=== PATIENT | male | born 1970 ===

== ENCOUNTER 2021-08-09 06:41 | Outpatient (REF) | payer OTHER, SELFPAY ==
[2021-08-09 07:32] LABS: Hematocrit 53.1 % (42.0-52.0); Hemoglobin 17.7 g/dl (14.0-18.0); Mean Corpuscular HGB Conc 33.3 g/dl (31.0-36.0); Mean Platelet Volume 10.4 fL (9.4-12.4); Platelet Count 205 X10*3/uL (160-400)
[2021-08-09 07:43] LABS: Estimated Average Glucose 123 mg/dL; Hemoglobin A1c % 5.9 %
[2021-08-09 08:03] LABS: Alanine Aminotransferase 29 U/L (0-40); Albumin Level 4.5 g/dL (3.5-5.0); Alkaline Phosphatase 83 U/L (39-117); Aspartate Amino Transferase 22 U/L (5-37); Bilirubin Direct 0.3 mg/dL (0.0-0.5); Bilirubin Total 1.2 mg/dL (0.0-1.0); Cholesterol 256 mg/dL; HDL Cholesterol 33 mg/dL; Total Protein 7.6 g/dL (6.5-8.0); Triglycerides 461 mg/dL
[2021-08-09 08:40] LABS: Appearance Urine CLEAR; Color Urine YELLOW; Glucose Urine UA 500 MG/DL (NEG); Leukocyte Esterase Urine NEG (NEG); Nitrite Urine NEG (NEG); Urine Blood NEG (NEG); Urine Ketones NEG (NEG); Urine Protein TRACE MG/DL (NEG-TRACE)
== END 2021-08-09 06:42 | disposition home or self-care (01) ==
LOC: HO.LAB 06:41
PROVIDERS: PCP Internal Medicine; Visit Provider Internal Medicine
DX: E11.9 Type 2 diabetes mellitus without complications (principal)
CPT/HCPCS: 36415; 80061; 80076; 81003; 83036; 85027

== ENCOUNTER 2021-12-28 06:55 | Outpatient (REF) | payer OTHER, SELFPAY ==
[2021-12-28 07:25] LABS: Hematocrit 50.6 % (42.0-52.0); Hemoglobin 17.3 g/dl (14.0-18.0); Mean Corpuscular HGB Conc 34.2 g/dl (31.0-36.0); Mean Corpuscular Volume 87.7 fL (80.0-98.0); Mean Platelet Volume 10.2 fL (9.4-12.4); Platelet Count 217 X10*3/uL (160-400); Red Blood Count 5.77 X10*6/uL (4.60-5.80); White Blood Count 7.3 X10*3/uL (4.8-10.8)
[2021-12-28 07:31] LABS: Estimated Average Glucose 126 mg/dL
[2021-12-28 07:52] LABS: Alanine Aminotransferase 24 U/L (0-40); Albumin Level 4.5 g/dL (3.5-5.0); Alkaline Phosphatase 95 U/L (39-117); Anion Gap 12 (12-20); Aspartate Amino Transferase 22 U/L (5-37); Bilirubin Direct 0.3 mg/dL (0.0-0.5); Bilirubin Total 1.3 mg/dL (0.0-1.0); Blood Urea Nitrogen 21 mg/dL (9-16); Calcium 9.5 mg/dL (8.4-10.2); Carbon Dioxide 26 mmol/L (22-29); Chloride 106 mmol/L (96-108); Cholesterol 210 mg/dL; Estimated Glomerular Filt Rate > 60; Glucose Random 101 mg/dL (60-115); HDL Cholesterol 34 mg/dL; LDL Cholesterol Calculated 109 mg/dl; Potassium 4.5 mmol/L (3.3-5.1); Sodium 139 mmol/L (135-145); Total Protein 7.6 g/dL (6.5-8.0); Triglycerides 336 mg/dL
[2021-12-28 09:56] LABS: Microalbum/Creatinine Ratio Ur 31.9 ug/mg cr
== END 2021-12-28 06:56 | disposition home or self-care (01) ==
LOC: HO.LAB 06:55
PROVIDERS: PCP Internal Medicine; Visit Provider Internal Medicine
DX: E11.9 Type 2 diabetes mellitus without complications (principal); I10 Essential (primary) hypertension
CPT/HCPCS: 36415; 80048; 80061; 80076; 82043; 83036; 85027

== ENCOUNTER 2022-07-09 06:52 | Outpatient (REF) | payer OTHER, SELFPAY ==
[2022-07-09 08:01] LABS: Hematocrit 53.1 % (42.0-52.0); Hemoglobin 18.5 g/dl (14.0-18.0); Mean Corpuscular HGB Conc 34.8 g/dl (31.0-36.0); Mean Corpuscular Hemoglobin 30.4 pg (27.0-33.0); Mean Corpuscular Volume 87.2 fL (80.0-98.0); Mean Platelet Volume 10.8 fL (9.4-12.4); Platelet Count 213 X10*3/uL (160-400); Red Blood Count 6.09 X10*6/uL (4.60-5.80); White Blood Count 6.9 X10*3/uL (4.8-10.8)
[2022-07-09 10:46] LABS: Alanine Aminotransferase 35 U/L (0-40); Albumin Level 4.5 g/dL (3.5-5.0); Alkaline Phosphatase 105 U/L (39-117); Anion Gap 18 (12-20); Aspartate Amino Transferase 21 U/L (5-37); Bilirubin Direct < 0.2 mg/dL (0.0-0.5); Bilirubin Total 0.7 mg/dL (0.0-1.0); Blood Urea Nitrogen 19 mg/dL (9-16); Carbon Dioxide 22 mmol/L (22-29); Chloride 104 mmol/L (96-108); Cholesterol 270 mg/dL; Estimated Glomerular Filt Rate > 60; Glucose Random 140 mg/dL (60-115); HDL Cholesterol 30 mg/dL; Potassium 4.5 mmol/L (3.3-5.1); Sodium 139 mmol/L (135-145); Total Protein 7.8 g/dL (6.5-8.0); Triglycerides 1003 mg/dL
== END 2022-07-09 06:53 | disposition home or self-care (01) ==
LOC: HO.LAB 06:52
PROVIDERS: PCP Internal Medicine; Visit Provider Internal Medicine
DX: Z00.00 Encounter for general adult medical examination without abnormal findings (principal); E11.9 Type 2 diabetes mellitus without complications; I10 Essential (primary) hypertension
CPT/HCPCS: 36415; 80048; 80061; 80076; 84443; 85027

== ENCOUNTER 2022-07-28 08:23 | Emergency (ER) | payer OTHER, SELFPAY ==
--- NOTE | ~2022-07-28 | XR_ITS ---
EXAMINATION: XR CHEST CLINICAL INFORMATION: Weakness COMPARISON: Chest x-ray December 16, 2018 TECHNIQUE: Frontal view of the chest was obtained. FINDINGS: Cardiac silhouette is normal in size. The lungs are well aerated. There is no lobar consolidation. No pleural effusion or pneumothorax. XR/XR chest 1V IMPRESSION: No acute pulmonary pathology.
[2022-07-28 08:25] VITALS: BP 152/96; PULSE 78; RESP 18; TEMP 36.5; O2SAT 99; BMI 28.5
--- NOTE | 2022-07-28 08:33 | ED.URI ---
HPI - URI/Sore Throat General Chief Complaint: Upper Respiratory Symptoms Stated Complaint: covid + not feeling well Time Seen by Provider: 07/28/22 08:32 Source: patient Mode of arrival: ambulatory Limitations: no limitations History of Present Illness HPI Narrative: 52-year-old male past medical history of hypertension and diabetes presents to the emergency department today with complaints of malaise, nausea with coughing, sore throat, fever and chills since Saturday of this week and diagnosed with COVID-19 on 07/26/2022. Last fever yesterday, managed with Ibuprofen Today, his major complaint is that he states his 'breathing is not normal' with shortness of breath with exertion. He denies any chest pain, headache, vision changes, change in bowel patterns or consistency. MD elicited complaint: fever, cough and sore throat Onset (ago): day(s) (3) Consistency: constant Severity: mild Description of mucous: clear Able to tolerate fluids by mouth: Yes Exacerbating factors: exertion Relieving factors: NSAID, OTC cold medicine and rest Treatments prior to arrival: ibuprofen Related Data Previous Rx's Medication Instructions Recorded lancets 28 gauge (Good PhotoStyle #100 ea 08/03/21 Lancets) telmisartan 40 1 tab PO DAILY #90 tabs 08/03/21 mg-hydrochlorothiazide 12.5 mg tablet blood sugar diagnostic (Good PhotoStyle #100 ea 01/29/22 Lite Strips) dapagliflozin 10 mg-metformin ER 1 tab PO DAILY #90 ea 01/29/22 1,000 mg tablet,extended release 24hr (Xigduo XR) Allergies Allergy/AdvReac Type Severity Reaction Status Date / Time No Known Allergies Allergy Verified 07/05/22 13:26 [No Known Allergies*] Review of Systems Review of Systems: In addition to documented HPI above, the additional ROS was obtained: Constitutional: No Weight loss, no headache ENT/Mouth: No Ear Pain, No Nasal Congestion, No Sinus Pain, No Hoarseness, No Rhinorrhea, No Swallowing Difficulty Cardiovascular: No Chest Pain, No SOB at rest Respiratory: No Sputum, No Wheezing Gastrointestinal: No Vomiting, No Diarrhea, No Constipation, No Abdominal pain Genitourinary: No Dysuria, No Urinary Frequency, No Hematuria, No Urinary Incontinence/retention, No Urgency, No Flank Pain Musculoskeletal: No joint pain, No Myalgias, No Joint Swelling Skin: No Skin Lesions, No rash Neuro: No Weakness, No Numbness, No Paresthesias Yes all other systems are reviewed and are negative PMFSH Past Medical History Attestation statement: The following information was validated with the patient. Source: old records reviewed Medical History Diabetes mellitus Essential hypertension Surgical History No history of previous surgery Family History Family History Mother No problems noted. Father No problems noted. Social History Social History Housing: Apartment Alcohol intake: never Patient Tobacco Use Status: Former Tobacco user (20 years ago) Quit Date: 20 years ago e-Cigarette/Vaping Use: Never Used Second Hand Smoke Exposure: Yes Advance Directives: No Advance Directives Information Provided: No service: No Current occupational status: unemployed Cognitive needs: No Hearing needs: No Vision needs: No Physical Exam Vital Signs: Vital Signs: Last Vital Signs Temp 97.7 F 07/28/22 08:25 Pulse 78 07/28/22 08:25 Resp 18 07/28/22 08:25 BP 152/96 H 07/28/22 08:25 Pulse Ox 99 07/28/22 08:25 O2 Del Method 07/28/22 08:25 BMI result Body Mass Index 28.5 Const: General: cooperative, alert and awake Nutritional Appearance: well nourished Orientation/consciousness: patient oriented x3 Limitations: no limitations HEENT: Head: Yes normal to inspection and Yes atraumatic Ears: hearing grossly normal bilaterally and external ears normal General nose exam: Normal external nose present and Normal nares present Face and sinus: Yes normal facial exam and Yes face symmetric Mouth: Normal oral and palatal mucosa present Teeth and gingiva: dentition normal Throat: Yes posterior oropharynx normal Eyes: General: appearance normal, both eyes and all related structures Visual Dugan: normal visual dugan by confrontation Alignment and Position: alignment normal Periorbital: periorbital findings normal Eyelids: Yes eyelids normal Conjunctivae: conjunctivae normal Sclerae: sclerae normal Corneas: corneas normal Pupils: Equal, round and reactive pupils present EOM: EOMs intact bilaterally Neck: Neck: Yes normal visual inspection, Yes full ROM and Yes no lymphadenopathy Chest: Chest palpation & inspection: normal inspection of the chest Resp: Effort & Inspection: normal respiratory effort, Actively coughing Quality: dry and not labored Auscultation: clear to auscultation bilaterally, no crackles, no rhonchi and no wheezes Cardio: Rate: regular rate Rhythm: regular rhythm GI: Inspection: Yes normal to inspection Palpation (GI): Soft to palpation and nontender Auscultation: normal bowel sounds Back/Spine/Pelvis: Cervical Spine: cervical ROM normal Thoracic/Lumbar Spine: thoraco-lumbar ROM normal Skin: General skin exam: no rashes or lesions noted Neuro: General: patient oriented x3, tone normal and moves all extremities Cranial nerves: Yes Equal, round and reactive pupils present Cognition (Neuro): normal cognition Gait exam (Neuro): Normal gait present Motor exam (neuro): 5/5 motor strength present throughout Extrem: General: Yes normal to inspection, Yes full ROM and Yes capillary refill normal Psych: Appearance: grossly normal Mental Status: mental status grossly normal Speech and movement: Normal speech and movement present Affect: normal affect Attitude: cooperative Thought process: Normal thought process present Thought content: Normal thought content present Insight: Good insight present (Psych) Judgement: Good judgement present (Psych) Medical Decision Making Medical Decision Making MDM Narrative: 52-year-old male past medical history of hypertension, diabetes, and new Covid diagnosis (07/26/22) presents to the emergency department today with complaints of malaise, nausea with coughing, sore throat, fever and chills x 3 days. Last fever yesterday, managed with Ibuprofen and qulv-eon-banwisp cold medications with good response. Today his major complaint is that he states his 'breathing is not normal' with shortness of breath with exertion. Physical exam unremarkable to signs of distress. Skin pink, warm, dry. LS CTA. DIAGLE equally with good strength. CXR negative for cardio pulmonary infection or disease. HPI, PE, and diagnostics consistent with Covid-19 viral illness. Low suspicion for pneumonia at this time. Patient is safe for discharge at this time with management of upper respiratory infection symptoms with ishl-ofp-ulysbnc Tylenol and/or Motrin for management of fever and body aches. Patient educated that he may use oasa-gkb-poljreg cough and cold medications, however; he has to avoid medications that contain pseudoephedrine, phenylephrine, and ephedrine as they will further increase his blood pressure. HPI, PE, diagnostics, and plan discussed with patient and family with no unanswered questions at this time. Patient educated to return to the emergency department with new, worsening, or concerning emergent symptoms. Recommended to follow-up with her primary care provider for further treatment and management. *Refer to Course for additional information on consultations, diagnostic interpretation, consultations, emergency department stay, conversations with patient and family, shared decision making with patient, and more information on medical decision making* Lab Data Labs: Lab Results 07/28/22 07/28/22 Range/Units 08:30 08:30 Influenza Type A (PCR) NEGATIVE (Negative) Influenza Type B (PCR) NEGATIVE (Negative) RSV RNA Qual (PCR) NEGATIVE (Negative) SARS-CoV-2 RNA (RT-PCR) POSITIVE A (Negative) S. pyogenes GrpA JAYLEN Negative (Negative) Discharge Plan Discharge Clinical Impression: COVID-19 Patient Disposition: Home, Self-Care Instructions: COVID-19 (Coronavirus Disease 2019) (ED) Additional Instructions: Your nasal swab is positive for Covid-19. Your chest xray is negative for pneumonia. You are safe for discharge at this time with management of upper respiratory infection symptoms with rpbl-dyf-qcnanlo Tylenol and/or Motrin. You may use yqel-oug-wbjisxd cough and cold medications, however; avoid medications that contain pseudoephedrine, phenylephrine, and ephedrine as they will further increase your blood pressure. Please return to the emergency department with new, worsening, or concerning emergent symptoms. Please follow-up with her primary care provider for further treatment and management. Prescriptions: No Action (DME) FreeStyle Lite Strips Strip See Rx Instructions .ROUTE .MEDSUPPLY Qty: 100 1RF Rx Instructions: once a day Xigduo XR 10-1,000 mg tablet, IR - ER, biphasic 24hr 1 tab PO DAILY Qty: 90 0RF telmisartan-hydrochlorothiazid 40-12.5 mg tablet 1 tab PO DAILY Qty: 90 1RF (DME) lancets [FreeStyle Lancets] 28 gauge misc See Rx Instructions .ROUTE .MEDSUPPLY Qty: 100 1RF Rx Instructions: to check blood sugars once a day Referrals: Jorge A Pizarro MD [Primary Care Provider] - Stand Alone Forms: Work/School Release Interventions: ED Discharge Assessment Last Done: 07/28/22 09:34 Discharge Date/Time: 07/28/22 09:35 Print Language: Citizen Of [place]
[2022-07-28 08:53] LABS: IDNOW Serial# 6674DD1D; Strep A Nucleic Acid Negative (Negative)
[2022-07-28 09:23] LABS: Influenza A PCR NEGATIVE (Negative); Influenza B PCR NEGATIVE (Negative); Resp Syncy Virus RNA Qual PCR NEGATIVE (Negative); SARS COV2 PCR INHOUSE POSITIVE (Negative)
== END 2022-07-28 09:35 | disposition home or self-care (01) ==
PROVIDERS: Emergency Provider Emergency Medicine Emergency Medical Services; PCP Internal Medicine
DX: U07.1 COVID-19 (principal); R06.02 Shortness of breath; E11.9 Type 2 diabetes mellitus without complications; I10 Essential (primary) hypertension
CPT/HCPCS: 0241U; 36415; 71045; 87651; 99282; 99283

== ENCOUNTER → 2022-10-03 11:56 | Outpatient (BNVA) | payer OTHER, SELFPAY | PROVIDERS: PCP Internal Medicine; Visit Provider Physician Assistant | DX: Z12.11 Encounter for screening for malignant neoplasm of colon (principal) | CPT/HCPCS: 99202 ==

== ENCOUNTER 2023-01-29 16:31 | Outpatient (REF) | payer OTHER, SELFPAY ==
--- NOTE | ~2023-01-29 | US_ITS ---
EXAMINATION: US SCROTUM US SCROTUM DOPPLER CLINICAL INFORMATION: Testicular pain. COMPARISON: None available. TECHNIQUE: A sonogram of the scrotum was performed assessing man-scale appearance and color Doppler flow. Spectral Doppler analysis of the arterial and venous flow were performed in the testes bilaterally. FINDINGS: RIGHT: Right testicle measures 4.6 x 2.4 x 3.4 cm, volume 19.8 mL. There is a right appendix testis. There is an echogenic subcortical mass in the right testicle which measures 4 x 3 x 3 mm. This has an echogenic rim and an isoechoic interior. No other focal testicular parenchymal lesions are visualized. Spectral Doppler analysis of the arterial and venous flow is normal in the right testis. Right epididymal head is normal in size. Multiple epididymal cysts are present, the largest is 4 x 3 x 5 mm and is complex with echogenic content and some septations. Right epididymal Doppler flow is normal. Small right hydrocele is present. A non-significant right varicocele is present LEFT: Left testicle measures 4.4 x 2.4 x 3.1 cm, volume 17.4 mL. No focal testicular parenchymal lesions are visualized. Spectral Doppler analysis of the arterial and venous flow is normal in the left testis. Left epididymal head is normal in size. Epididymal cysts are present with the largest on the left measuring 3 mm. Left epididymal Doppler flow is normal. A small left hydrocele is present. A small left varicocele is present. US/US scrotum doppler IMPRESSION: 1. Small echogenic mass in the right testicle. This is minimally concerning and a followup ultrasound exam in 3 months is recommended. If the mass persists, MRI should be performed. 2. Bilateral epididymal cysts along with small hydroceles and varicoceles.
== END 2023-01-29 16:32 | disposition home or self-care (01) ==
LOC: HO.US 16:31
PROVIDERS: PCP Internal Medicine; Visit Provider Internal Medicine
DX: N50.819 Testicular pain, unspecified (principal)
CPT/HCPCS: 76870; 93975

== ENCOUNTER 2023-05-06 11:11 | Day surgery (SDC) | payer OTHER, SELFPAY ==
--- NOTE | 2023-05-03 10:54 | HO.ANESPROP2 ---
Documented by User: Ashwini Monique NP 05/03/23 10:55 HPI - Anesthesia Eval Consult details Narrative: 53yo M for Colonoscopy PMF Active Problems Active Problems: All Active Problems (Updated 01/11/23 @ 05:52 by Jorge A Pizarro MD) Testicular pain, unspecified (Acute) Encounter for screening colonoscopy (Acute) COVID-19 (Acute) Essential hypertension (Acute) Annual physical exam (Acute) Diabetes mellitus (Acute) Past Medical History Medical History Essential hypertension Diabetes mellitus Family History Family History Mother No problems noted. Father No problems noted. Surgical History Surgical History History of dental surgery History of wisdom tooth extraction Social History Social History Household Members Other:: Housing: Apartment Alcohol intake: never Patient Tobacco Use Status: Former Tobacco user Quit Date: 20 years ago e-Cigarette/Vaping Use: Never Used Second Hand Smoke Exposure: Yes Use of substances other than those prescribed or required for medical reasons: No Are you DNR?: No Advance Directives: No Advance Directives Information Provided: Yes Recently lost weight without trying: No Nutrition Risks: No Nutritional Risk service: No Current occupational status: unemployed Cognitive needs: No Hearing needs: No Vision needs: No Meds Allergies Allergy/AdvReac Type Severity Reaction Status Date / Time No Known Allergies Allergy Verified 01/10/23 11:37 [No Known Allergies*] Exam Exam Date and Time: May 03, 2023 1054 Assessment and Plan Assessment Anesthesia Assessment: Chart Reviewed Documented by User: Lulu Soto MD 05/06/23 11:46 PMFSH Past Medical History Medical History Essential hypertension Diabetes mellitus Family History Family History Mother No problems noted. Father No problems noted. Family history of problems with anesthesia: No Surgical History Surgical History History of dental surgery History of wisdom tooth extraction History of Problems with Anesthesia: No Social History Social History Household Members Other:: Housing: Apartment Alcohol intake: never Patient Tobacco Use Status: Former Tobacco user Quit Date: 20 years ago e-Cigarette/Vaping Use: Never Used Second Hand Smoke Exposure: Yes Use of substances other than those prescribed or required for medical reasons: No Are you DNR?: No Advance Directives: No Advance Directives Information Provided: Yes Recently lost weight without trying: No Nutrition Risks: No Nutritional Risk service: No Current occupational status: unemployed Cognitive needs: No Hearing needs: No Vision needs: No Meds Allergies Allergy/AdvReac Type Severity Reaction Status Date / Time No Known Allergies Allergy Verified 01/10/23 11:37 [No Known Allergies*] Exam Airway Mallampati Class: II TM Dist: >3cm Neck ROM: Full Heart: rrr Lungs: cta Assessment and Plan Assessment Anesthesia Assessment: Anesthesia Plan Discussed Final Anesthetic Review Family History of Problems with Anesthesia: No History of Problems with Anesthesia: No NPO: Yes ASA Class: III Final Preanesthetic Review: No Changes in Pt Med Stat, Meds/Allgs Chart Reviewed, Consent Obtained/Reviewed and Anes Risks/Benef Reviewed Patient Risk: Intermediate Procedure Risk: Low Anesthetic Plan Anesthetic Plan: MAC: Disposition: Standard PACU
[2023-05-06 11:17] VITALS: BP 149/93; PULSE 72; RESP 18; TEMP 36.4; O2SAT 97; BMI 28.7
--- NOTE | 2023-05-06 11:43 | MHC.SHP ---
Pre-Procedural Eval Section A Date of Service: 05/06/23 The patient is an INPATIENT: No The History & Physical has been completed within 30 days and I have reviewed it.: No Section B Chief Complaint: colon cancer screening Relevant Family History (Specify if Yes): No Relevant Social History: Tobacco Use ( former smoker) Present Medications: see Short Stay Collaborative assessment Medical History: Significant History (Diabetes mellitus Essential hypertension) History of Previous Operations: Relevant previous surgery/procedure and date(s) ( history of dental surgery) Allergies: Allergies Allergy/AdvReac Type Severity Reaction Status Date / Time No Known Allergies Allergy Verified 01/10/23 11:37 [No Known Allergies*] Review of Systems Sugical H&P ROS: Negative: Constitution, Cardiovascular, Respiratory and Gastrointestinal Exam Surgical H&P Exam: Normal: Heart, Normal: Lungs, Normal: Extremities and Normal: Abdomen Plan Diagnosis/Plan: Unchanged I have reviewed the history and physical and performed a pertinent physical examination on my patient. No changes have occurred unless specified. Time Spent With Patient Time: Total time managing care of this patient today ____ minutes.
--- NOTE | 2023-05-06 11:49 | W.PM.OPN ---
Operative Note Operative Note Date of Service: 05/06/23 Narrative: COLONOSCOPY TILL CECUM WITH BIOPSIES Pre-op diagnosis: colon cancer screening (1st colonoscopy) Post-op diagnosis:? colon polyps, diverticulosis, hemorrhoids Endoscopist:? Shiraz Villatoro MD Anesthesia:?MAC Consent: Indications for the procedure and potential complications of bleeding, perforation, reaction to medications and missed diagnosis were discussed with the patient and informed consent was obtained. Instrument: Olympus PCF H 190 L variable stiffness pediatric colonoscope Monitoring: Vital signs and clinical assessment, intermittent blood pressure monitoring, continuous EKG monitoring, Pulse oximetry and Carbon Dioxide monitoring were done throughout the procedure. Please see anesthesia flowsheet. Colon withdrawl time was 16 minutes. Procedure: The patient was placed in the left lateral decubitis position and pre-procedure medications were administered. After a digital rectal examination of the ano-rectum, the video colonoscope was inserted into the rectum and advanced through the colon to the cecum. The colonoscope was slowly withdrawn in a retrograde panoramic fashion and the colon mucosa was carefully examined including a retroflexed view of the rectum. Findings and interventions are described below. Procedure Difficulty: colon was long and there was some loop formation Findings: Terminal Ileum: Not evaluated Cecum: A 3-4 mm sessile polyp - removed with a cold biopsy Ascending Colon: A 2-3 mm sessile polyp - removed with a cold bx Transverse Colon: Normal Descending Colon: Normal Sigmoid Colon: Moderate diverticulosis Rectum: Normal Ano-rectum: Moderate internal hemorrhoids Colon preparation: Good after some irrigation Impression and Post Procedure Diagnosis: Colonoscopy Findings: Two small polyps removed Moderate diverticulosis seen in the sigmoid colon Moderate hemorrhoids on retroflexed exam. Plan: Await pathology results Patient has an appointment on 05/20/23 in the GI [facility] with SANDRA Gallegos. Repeat Colonoscopy interval based on path results - in 5 years if polyps are adenomatous and 10 years if polyps are hyperplastic (adult colonoscope for future colonoscopies). Above findings were reviewed with the patient and colon polyps and diverticulosis handouts were given in the discharge area
--- NOTE | 2023-05-06 12:04 | HO.ANESPROP2 ---
[facility] Active Problems Active Problems: All Active Problems (Updated 01/11/23 @ 05:52 by Jorge A Pizarro MD) Testicular pain, unspecified (Acute) Encounter for screening colonoscopy (Acute) COVID-19 (Acute) Essential hypertension (Acute) Annual physical exam (Acute) Diabetes mellitus (Acute) Past Medical History Medical History Essential hypertension Diabetes mellitus Functional capacity: independent ambulation Family History Family History Mother No problems noted. Father No problems noted. Family history of problems with anesthesia: No Surgical History Surgical History History of dental surgery History of wisdom tooth extraction History of Problems with Anesthesia: No Social History Social History Household Members Other:: Housing: Apartment Alcohol intake: never Patient Tobacco Use Status: Former Tobacco user Quit Date: 20 years ago e-Cigarette/Vaping Use: Never Used Second Hand Smoke Exposure: Yes Use of substances other than those prescribed or required for medical reasons: No Are you DNR?: No Advance Directives: No Advance Directives Information Provided: Yes Recently lost weight without trying: No Nutrition Risks: No Nutritional Risk service: No Current occupational status: unemployed Cognitive needs: No Hearing needs: No Vision needs: No Meds Allergies Allergy/AdvReac Type Severity Reaction Status Date / Time No Known Allergies Allergy Verified 01/10/23 11:37 [No Known Allergies*] Active Medications: Current Medications Lactated Ringer's (Lr) 1,000 mls @ 100 mls/hr IVCONT .Q10H ROMAIN Exam Exam Date and Time: May 06, 2023 1204 Height,Weight and Vital Signs: Height 5 ft 6 in Weight 80.739 kg Last Vital Signs Temp 97.5 F 05/06/23 11:17 Pulse 72 05/06/23 11:17 Resp 18 05/06/23 11:17 BP 149/93 H 05/06/23 11:17 Pulse Ox 97 05/06/23 11:17 O2 Del Method Room Air 10/16/23 11:17 Airway Mallampati Class: II TM Dist: >3cm Neck ROM: Full Heart: RRR Lungs: CTA Assessment and Plan Assessment Anesthesia Assessment: Anesthesia Plan Discussed Final Anesthetic Review Family History of Problems with Anesthesia: No History of Problems with Anesthesia: No ASA Class: II Final Preanesthetic Review: Meds/Allgs Chart Reviewed, Consent Obtained/Reviewed and Anes Risks/Benef Reviewed Patient Risk: Low Procedure Risk: Low Anesthetic Plan Anesthetic Plan: MAC: Disposition: Standard PACU
[2023-05-06 12:33] VITALS: BP 89/53; PULSE 66; RESP 16; TEMP 36.5; O2SAT 95
[2023-05-06 12:33] LABS: Glucose, Whole Blood 100 mg/dL (60-115)
[2023-05-06 12:48] VITALS: BP 104/71; PULSE 65; RESP 16; TEMP 36.5; O2SAT 95
--- NOTE | 2023-05-06 13:24 | HO.POSTANES ---
Post Anesthesia Evaluation Post Anesthesia Evaluation Date of Service: 05/06/23 Vital Signs: Vital Signs Temp Pulse Resp BP Pulse Ox O2 Del Method 05/06/23 12:48 97.7 F 65 16 104/71 95 Room Air 05/06/23 12:33 97.7 F 66 16 89/53 L 95 Room Air 05/06/23 11:17 97.5 F 72 18 149/93 H 97 Room Air Anesthesia: Monitored Mental Status: Awake Pain Control: Satisfactory Nausea/Vomiting: None Hydration: Adequate Anesthesia-Related Issues: No Anes. Related Issues
== END 2023-05-06 13:51 | disposition home or self-care (01) ==
PROVIDERS: PCP Internal Medicine; Visit Provider Internal Medicine Gastroenterology
PROC: 0DJD8ZZ Inspection of Lower Intestinal Tract, Via Natural or Artificial Opening Endoscopic (ICD-10-PCS; CPT 45378; principal; 2023-05-06 12:50)
DX: Z12.11 Encounter for screening for malignant neoplasm of colon (principal); D12.2 Benign neoplasm of ascending colon; K63.5 Polyp of colon; K57.30 Diverticulosis of large intestine without perforation or abscess without bleeding; K64.8 Other hemorrhoids; I10 Essential (primary) hypertension; E11.9 Type 2 diabetes mellitus without complications; Z79.84 Long term (current) use of oral hypoglycemic drugs; Z79.899 Other long term (current) drug therapy; Z87.891 Personal history of nicotine dependence
CPT/HCPCS: 45380; 82947; 88305

== ENCOUNTER → 2023-05-06 11:11 | Outpatient (BNV) | payer OTHER, SELFPAY | PROVIDERS: PCP Internal Medicine; Visit Provider Internal Medicine Gastroenterology | DX: Z12.11 Encounter for screening for malignant neoplasm of colon (principal); D12.2 Benign neoplasm of ascending colon; K57.30 Diverticulosis of large intestine without perforation or abscess without bleeding; K64.8 Other hemorrhoids | CPT/HCPCS: 45380 ==

== ENCOUNTER 2023-05-20 12:54 | Outpatient (AMB) | payer OTHER, SELFPAY ==
--- NOTE | 2023-05-20 11:27 | MHC.OFFVIS ---
Intake Vital Signs 05/20/23 12:59 Height 5 ft 6 in Weight 178 lb 9.191 oz BMI 28.8 BP 122/80 Blood Pressure Location Lt brachial Position Sitting Pulse 80 Intake Visit Reasons: s/p colon-Irving Intake Note: Fish presents in the office as a follow up colonoscopy. CC: HE states that he is not having any concerns today. Allergies No Known Allergies [No Known Allergies*] Allergy (Verified 05/20/23 13:07) HPI HPI Comments History of Present Illness Details A 53 y/o male f/u after index screening with polypectomy Tolerated procedure well He has no GI or general complaints His accompanies him today Reviewed procedure report, pathology as well as recommendations [facility] Medical History (Updated 05/20/23 @ 13:51 by Felecia Pond PA-C) Essential hypertension Diabetes mellitus Surgical History Hx of colonoscopy History of dental surgery History of wisdom tooth extraction Family History Mother No problems noted. Father No problems noted. Social History Household Members Other:: Housing: Apartment Alcohol intake: never Patient Tobacco Use Status: Former Tobacco user Quit Date: 20 years ago e-Cigarette/Vaping Use: Never Used Second Hand Smoke Exposure: Yes service: No Current occupational status: unemployed Cognitive needs: No Hearing needs: No Vision needs: No Review of Systems Const All systems reviewed & are unremarkable except as noted in HPI and below Physical Exam Vital Signs: Last Vital Signs Pulse 80 05/20/23 12:59 BP 122/80 05/20/23 12:59 BMI result Body Mass Index 28.8 Const General: cooperative, healthy appearing, comfortable, no acute distress and well developed Orientation/consciousness: patient oriented x3 Limitations: no limitations Resp Effort & Inspection: normal respiratory effort and able to speak in complete sentences Neuro General: patient oriented x3 Extrem General: Yes full ROM Psych Appearance: grossly normal and well kempt Mental Status: mental status grossly normal Speech and movement: Normal speech and movement present and Clear speech present Affect: normal affect Attitude: cooperative Thought process: Normal thought process present Thought content: Normal thought content present Insight: Good insight present (Psych) Judgement: Good judgement present (Psych) Results Reviewed Results Reviewed: Findings: Terminal Ileum: Not evaluated Cecum: A 3-4 mm sessile polyp - removed with a cold biopsy Ascending Colon: A 2-3 mm sessile polyp - removed with a cold bx Transverse Colon: Normal Descending Colon: Normal Sigmoid Colon: Moderate diverticulosis Rectum: Normal Ano-rectum: Moderate internal hemorrhoids Colon preparation: Good after some irrigation Impression and Post Procedure Diagnosis: Colonoscopy Findings: Two small polyps removed Moderate diverticulosis seen in the sigmoid colon Moderate hemorrhoids on retroflexed exam. Plan: Await pathology results Patient has an appointment on 05/20/23 in the GI Clinic with SANDRA Gallegos. Repeat Colonoscopy interval based on path results - in 5 years if polyps are adenomatous and 10 years if polyps are hyperplastic (adult colonoscope for future colonoscopies). Above findings were reviewed with the patient and colon polyps and diverticulosis handouts were given in the discharge area OB: 1970 Submitted by: Shiraz Villatoro MD Copies to: Jorge A Pizarro MD MR #: [id number] Status: [facility] Collected: 05/06/23 Location: [facility] Received: 05/06/23 Diagnosis A. Colon, cecum, biopsy: Clinically polypoid colonic mucosa noted; negative for a hyperplastic or neoplastic process. B. Colon, ascending, biopsy: Tubular adenoma, diminutive; negative for high-grade dysplasia. Clinical History Pre-Op Dx: Screening Post-Op Dx: Colon polyps, diverticulosis, hemorrhoids Microscopic Description Microscopic sections reviewed. Material Received A. Polyp cecum B. Ascending colon polyp Gross Description Received in 2 parts. Part A: Received in formalin labeled ?polyp cecum? is a 0.35 cm in greatest dimension glistening, semitranslucent, soft, aguiar rectangular tissue fragment which is submitted in toto in a single cassette labeled A. Part B: Received in formalin labeled ?ascending colon polyp? are 2 glistening, semitranslucent, soft, aguiar- pink irregular tissue fragments measuring 0.1 and 0.2 cm in greatest dimension which are submitted in toto in a single cassette labeled B. CEDS Copies To Shiraz Villatoro MD [address] [place] [address] Dr. Ho, [place] [address] Jorge A Pizarro MD Patient: Fish Houston Age/Sex: 53/M MR#: [id number] Page 1 of 2 Name: Fish Houston Age/Sex: 53/M Attending: Shiraz Villatoro MD : 1970 Submitted by: Shiraz Villatoro MD Copies to: Jorge A Pizarro MD MR #: [id number] Status: [facility] Collected: 05/06/23 Location: [facility] Received: 05/06/23 Diagnosis A. Colon, cecum, biopsy: Clinically polypoid colonic mucosa noted; negative for a hyperplastic or neoplastic process. B. Colon, ascending, biopsy: Tubular adenoma, diminutive; negative for high-grade dysplasia. Clinical History Pre-Op Dx: Screening Post-Op Dx: Colon polyps, diverticulosis, hemorrhoids Microscopic Description Microscopic sections reviewed. Material Received A. Polyp cecum B. Ascending colon polyp Gross Description Received in 2 parts. Part A: Received in formalin labeled ?polyp cecum? is a 0.35 cm in greatest dimension glistening, semitranslucent, soft, aguiar rectangular tissue fragment which is submitted in toto in a single cassette labeled A. Part B: Received in formalin labeled ?ascending colon polyp? are 2 glistening, semitranslucent, soft, aguiar- pink irregular tissue fragments measuring 0.1 and 0.2 cm in greatest dimension which are submitted in toto in a single cassette labeled B. CEDS Copies To Shiraz Villatoro MD [address] [place] [address] Dr. Ho, [place] [address] Jorge A Pizarro MD Patient: Fish Houston Age/Sex: 53/M MR#: [id number] Page 1 of 2 Assessment & Plan Assessment & Plan (1) Tubular adenoma: Comment: Index screening colonoscopy-tubular adenoma Code(s): D36.9 - Benign neoplasm, unspecified site Plan: Repeat colonoscopy 5 all first-degree relatives begin screening at age 40 (2) Diverticulosis: Code(s): K57.90 - Diverticulosis of intestine, part unspecified, without perforation or abscess without bleeding Plan: Maintain high-fiber diet Diverticulosis/diverticulitis ER protocol (3) Hemorrhoids: Code(s): K64.9 - Unspecified hemorrhoids Plan: Avoid straining Plan 5 year repeat colonoscopy for adenoma Patient Instructions: Repeat 5 year polyp surveillance colonoscopy All first-degree relatives begin screening at age 40 maintain HFD Avoid straining Diverticulosis diverticulitis ER protocol reviewed Literature given Coding Level of Care Code Est Pt Level 3 (00292) Diagnoses Tubular adenoma D36.9 Diverticulosis K57.90 Hemorrhoids K64.9 Time Spent (min) 20
[2023-05-20 12:59] VITALS: BP 122/80; PULSE 80; BMI 28.8
== END 2023-05-20 14:06 | disposition home or self-care (01) ==
PROVIDERS: PCP Internal Medicine; Visit Provider Physician Assistant
DX: D36.9 Benign neoplasm, unspecified site (principal); K57.90 Diverticulosis of intestine, part unspecified, without perforation or abscess without bleeding; K64.9 Unspecified hemorrhoids
CPT/HCPCS: 99213

== ENCOUNTER → 2023-05-20 12:54 | Outpatient (BNVA) | payer OTHER, SELFPAY | PROVIDERS: PCP Internal Medicine; Visit Provider Physician Assistant | DX: K57.90 Diverticulosis of intestine, part unspecified, without perforation or abscess without bleeding (principal); K64.9 Unspecified hemorrhoids; D36.9 Benign neoplasm, unspecified site | CPT/HCPCS: 99212 ==

== ENCOUNTER 2023-09-19 15:11 | Outpatient (REF) | payer OTHER, SELFPAY ==
--- NOTE | ~2023-09-19 | US_ITS ---
EXAMINATION: US SCROTUM CLINICAL INFORMATION: Testicular pain. COMPARISON: Portions of a previous 01/29/23 TECHNIQUE: A sonogram of the scrotum was performed assessing man-scale appearance and color Doppler flow. Spectral Doppler analysis of the arterial and venous flow were performed in the testes bilaterally. FINDINGS: RIGHT: Right testicle measures 4.6 x 2.4 x 3.2 cm, volume 19 mL. There is a unchanged round focal abnormality adjacent to the tunica of the mid right testicle. This manifests as an echogenic rim with a hypoechoic internal component. There is no internal color signal. There is no surrounding edema. The interface with the capsule appears smooth. This measures 0.4 cm without significant change. No new suspicious abnormality within the right testicle. Spectral Doppler analysis of the arterial and venous flow is normal in the right testis. Right epididymal head is minimally prominent without significant change. There are a few tiny anechoic components within the right epididymal head. These could represent small epididymal head cysts or spermatoceles. There are some small areas of relatively decreased echogenicity within the epididymal head. The epididymis appendix is visualized. There is a small to moderate amount of fluid within the right side of the scrotum. There is no peristalsing bowel. Right epididymal Doppler flow is normal. LEFT: Left testicle measures 4.6 x 2.3 x 2.6 cm, volume 15 mL. No focal testicular parenchymal lesions are visualized. Spectral Doppler analysis of the arterial and venous flow is normal in the left testis. Left epididymal head is normal in size. No left hydrocele or varicocele is seen. Left epididymal Doppler flow is normal. US/US scrotum doppler IMPRESSION: Stable 0.4 cm probably peripherally calcified nodule in the right testicle with no suspicious features. Recommend targeted stability with follow-up in 1 year. There is Doppler signal and color signal present within each testicle. Mildly enlarged slightly heterogeneous right epididymal head could reflect previous inflammation.
== END 2023-09-19 15:12 | disposition home or self-care (01) ==
LOC: HO.US 15:11
PROVIDERS: PCP Internal Medicine; Visit Provider Internal Medicine
DX: N50.819 Testicular pain, unspecified (principal)
CPT/HCPCS: 76870; 93975

== ENCOUNTER 2023-11-07 15:33 | Outpatient (AMB) | payer OTHER, SELFPAY ==
--- NOTE | 2023-11-07 15:34 | MHC.PC.OV ---
Vital Signs 11/07/23 15:37 Height 5 ft 6 in Weight 176 lb 8 oz BMI 28.5 BP 110/68 Blood Pressure Location Lt brachial Position Sitting Pulse 83 Pulse Source Pulse Oximeter Pulse Oximetry (%) 99 Oxygen Delivery Method Room Air Intake Visit Reasons: Annual Exam Intake Note: Patient is here today for a physical. 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 He was recently in [place] and got himself some blood work. Elevated cholesterol was noted. Was put on ezitimbe, Wellbutin, Rebysus. Pt seeking opinion on how to proceed. [facility] Medical History Essential hypertension Diabetes mellitus Surgical History Hx of colonoscopy History of dental surgery History of wisdom tooth extraction Family History Mother No problems noted. Father No problems noted. Social History Household Members Other:: Housing: Apartment Alcohol intake: never Patient Tobacco Use Status: Former Tobacco user Quit Date: 20 years ago e-Cigarette/Vaping Use: Never Used Second Hand Smoke Exposure: Yes service: No Current occupational status: unemployed Cognitive needs: No Hearing needs: No Vision needs: No Questionnaire PHQ-9 Over the last 2 weeks, how often have you been bothered by any of the following problems? 1. Little interest or pleasure in doing things: not at all 2. Feeling down, depressed, or hopeless: not at all 3. Trouble falling or staying asleep, or sleeping too much: not at all 4. Feeling tired or having little energy: not at all 5. Poor appetite or overeating: not at all 6. Feeling bad about yourself - or that you are a failure or have let yourself or your family down: not at all 7. Trouble concentrating on things, such as reading the newspaper or watching television: not at all 8. Moving or speaking so slowly that other people could have noticed. Or the opposite - being so fidgety or restless that you have been moving around a lot more than usual: not at all 9. Thoughts that you would be better off or of hurting yourself in some way: not at all Total score: 0 Depression Screening Interpretation: Negative Depression Screening Done: Yes Source: Developed by Drs. Say Hussein, Ludivina Huffman, Vincenzo Arrington and colleagues, with an educational hilton from [employer]. Thrive Questionnaire Date Thrive assessed: 11/07/23 I am a: Patient What is your living situation today?: I have a steady place to live Within the past 12 months, did the food you bought not last and you didn't have the money to get more?: Never true Within the past 12 months, did you worry whether your food would run out before you got money to buy more?: Never true Do you have trouble paying for medicines?: No Do you have trouble getting transportation to medical appointments?: No Do you have trouble paying your heating and electricity bill?: No Do you have trouble taking care of your child, family member or friend?: No Do you have trouble with day-to-day activities such as bathing, preparing meals, shopping, managing finances, etc.?: No Are you currently unemployed and looking for a job?: No Are you interested in more education?: No Currently or been in a relationship where the following occur: no concerns reported THRIVE Score: 0 AUDIT C Alcohol Use Questionnaire (AUDIT-C) 1. How often do you have a drink containing alcohol?: Never Total Score: 0 LUMA-7 AMB Questionnaire LUMA-7 Date LUMA - 7 assessed: 11/07/23 Feeling nervous, anxious, or on edge: 0 = Not at all Not being able to stop or control worryin = Not at all Worrying too much about different things: 0 = Not at all Trouble relaxin = Not at all Being so restless that it is hard to sit still: 0 = Not at all Becoming easily annoyed or irritable: 0 = Not at all Feeling afraid as if something awful might happen: 0 = Not at all Total LUMA-7 score (0-4 normal; 5-9 mild; 10-14 moderate; 15-21 severe): 0 Source: Developed by Drs. Say Hussein, Ludivina Huffman, Vincenzo Arrington and colleagues, with an educational hilton from [employer]. Physical exam (Primary Care) Vital Signs: Last Vital Signs Pulse 83 11/07/23 15:37 BP 110/68 11/07/23 15:37 Pulse Ox 99 11/07/23 15:37 Oxygen Delivery Method Room Air 11/07/23 15:37 Care Plan Goal for BP management: BP is in range. BMI result Body Mass Index 28.5 Tobacco/Smoking Status: Tobacco use Status Tobacco use date assessed 11/07/23 11/07/23 15:44 Patient Tobacco Use Status Former Tobacco user 11/07/23 15:34 e-Cigarette/Vaping Use Never Used 11/07/23 15:34 PHQ-9: PHQ-9 Score PHQ-9: Total score 0 11/07/23 15:59 Depression Screening Interpretation: Negative Thrive Assessment: Date of Thrive Assessment Date Thrive assessed 11/07/23 11/07/23 15:44 Currently or been in a relationship where the following occur: no concerns reported Const General: cooperative and healthy appearing Nutritional Appearance: well nourished Orientation/consciousness: patient oriented x3 Limitations: no limitations HENMT Head: Yes normal to inspection Eyes General: appearance normal, both eyes and all related structures Neck Neck: Yes normal visual inspection Chest Chest palpation & inspection: normal palpation of entire chest wall Resp Effort & Inspection: normal respiratory effort Neuro General: patient oriented x3 Results AMB Hemoglobin A1c AMB Hemoglobin A1c 5.7 % Last Edit by KATHARINE Dela Cruz on 11/07/23 15:53 Results Reviewed Results Reviewed: Laboratory Last Values Hgb A1c (Clinic) 5.7 % (4.0-6.0) 11/07/23 15:35 Assessment and Plan Assessment & Plan (1) Annual physical exam: Code(s): Z00.00 - Encounter for general adult medical examination without abnormal findings Plan: Patient was advised prescriptions from [place] cannot be continued. Fasting bw and A1c has been drawn. Based on the results, will start medications Orders: Orders AMB Hemoglobin A1c 11/07/23 E11.9 - Type 2 diabetes mellitus without complications Coding Level of Care Code New Pt Prev Care 40-64y(60682) Diagnoses Annual physical exam Z00.00
[2023-11-07 15:37] VITALS: BP 110/68; PULSE 83; O2SAT 99; BMI 28.5
== END 2023-11-07 18:09 | disposition home or self-care (01) ==
PROVIDERS: PCP Internal Medicine; Visit Provider Internal Medicine
DX: Z00.00 Encounter for general adult medical examination without abnormal findings (principal); E11.9 Type 2 diabetes mellitus without complications; E78.00 Pure hypercholesterolemia, unspecified
CPT/HCPCS: 83036; 99396

== ENCOUNTER 2023-11-22 05:54 | Outpatient (REF) | payer OTHER, SELFPAY ==
[2023-11-22 08:22] LABS: Alanine Aminotransferase 32 U/L (0-40); Albumin Level 4.2 g/dL (3.5-5.0); Alkaline Phosphatase 100 U/L (39-117); Anion Gap 15 (12-20); Aspartate Amino Transferase 21 U/L (5-37); Bilirubin Direct 0.4 mg/dL (0.0-0.5); Bilirubin Total 1.1 mg/dL (0.0-1.0); Blood Urea Nitrogen 13 mg/dL (9-16); Calcium 9.6 mg/dL (8.4-10.2); Carbon Dioxide 26 mmol/L (22-29); Chloride 104 mmol/L (96-108); Cholesterol 90 mg/dL (<200); Estimated Glomerular Filt Rate > 60; Glucose Random 102 mg/dL (60-115); HDL Cholesterol 31 mg/dL (>40); LDL Cholesterol Calculated 18 mg/dL (<100); Potassium 3.7 mmol/L (3.3-5.1); Sodium 141 mmol/L (135-145); Total Protein 7.6 g/dL (6.5-8.0); Triglycerides 208 mg/dL (<150)
[2023-11-22 08:39] LABS: Thyroid Stimulating Hormone 2.19 uIU/mL (0.32-4.0)
[2023-11-22 09:17] LABS: Appearance Urine Clear; Color Urine Yellow; Glucose Urine UA >=1000 mg/dL (Negative); Leukocyte Esterase Urine Negative (Negative); Nitrite Urine Negative (Negative); PH 5.5 (5.0-9.0); Specific Gravity - Urine >= 1.030 (1.005-1.025); UMIC TRIGGER UA YES; Urine Blood Negative (Negative); Urine Ketones Trace mg/dL (Negative); Urine Protein 30 (1+) mg/dL (Neg-Trace)
[2023-11-22 09:22] LABS: Bacteria Urine None Seen (None Seen); Hyaline Casts Urine 0-2 /LPF (0-2); RBC Urine 0-2 /HPF (0-2); Squamous Epithelial Cell Urine 0-2 /HPF (0-2); WBC Urine 0-5 /HPF (0-5)
== END 2023-11-22 05:55 | disposition home or self-care (01) ==
LOC: HO.LAB 05:54
PROVIDERS: PCP Internal Medicine; Visit Provider Internal Medicine
DX: E11.9 Type 2 diabetes mellitus without complications (principal)
CPT/HCPCS: 36415; 80048; 80061; 80076; 81001; 84443

== ENCOUNTER 2024-01-22 14:51 | Outpatient (AMB) | payer OTHER, SELFPAY ==
--- NOTE | 2024-01-22 14:58 | MHC.PC.OV ---
Vital Signs 01/22/24 15:01 Height 5 ft 6 in Weight 180 lb 4 oz BMI 29.1 BP 112/68 Blood Pressure Location Lt brachial Position Sitting Pulse 73 Pulse Source Pulse Oximeter Pulse Oximetry (%) 97 Oxygen Delivery Method Room Air Intake Visit Reasons: High Cholesterol Intake Note: Patient is here to follow up on High Cholesterol and lab results. Flexible Babysitter Required: No Foster Care Case Manager: Not Required per policy Accompanied by: Self / Same As Patient Allergies No Known Allergies [No Known Allergies*] Allergy (Verified 01/24/24 15:39) Medication List - Last Reconciled 01/24/24 by Jorge A Pizarro MD blood sugar diagnostic (FreeStyle Lite Strips) once a day dapaglifloz propaned-metformin 10-1,000 mg ER (Xigduo XR) 1 tab PO DAILY lancets (FreeStyle Lancets) to check blood sugars once a day telmisartan-hydrochlorothiazid 40-12.5 mg 1 tab PO DAILY Tobacco use date assessed: 01/22/24 Dental Screening Dental Screen Date: 11/07/23 HPI High Cholesterol HPI Details 53-year-old male presents to the office discuss his blood results. Patient recently had fasting blood work done. He noted that his triglycerides were elevated. He continues to be on his medications that he is tolerating very well. Able to function and do all activities of daily living. Reporting no side effects from the medication. [facility] Medical History Essential hypertension Diabetes mellitus Surgical History Hx of colonoscopy History of dental surgery History of wisdom tooth extraction Family History Mother No problems noted. Father No problems noted. Social History Household Members Other:: Housing: Apartment Alcohol intake: never Patient Tobacco Use Status: Former Tobacco user e-Cigarette/Vaping Use: Never Used Second Hand Smoke Exposure: Yes service: No Current occupational status: unemployed Cognitive needs: No Hearing needs: No Vision needs: No Questionnaire Thrive Questionnaire Date Thrive assessed: 11/07/23 LUMA-7 AMB Questionnaire LUMA-7 Date LUMA - 7 assessed: 11/07/23 Source: Developed by Drs. Say Hussein, Ludivina Huffman, Vincenzo Arrington and colleagues, with an educational hilton from [employer]. Physical exam (Primary Care) Vital Signs: Last Vital Signs Pulse 73 01/22/24 15:01 BP 112/68 01/22/24 15:01 Pulse Ox 97 01/22/24 15:01 Oxygen Delivery Method Room Air 01/22/24 15:01 Care Plan Goal for BP management: Blood pressure is in range BMI result Body Mass Index 29.1 Tobacco/Smoking Status: Tobacco use Status Tobacco use date assessed 01/22/24 01/22/24 15:14 Patient Tobacco Use Status Former Tobacco user 01/22/24 15:14 e-Cigarette/Vaping Use Never Used 01/22/24 15:14 Thrive Assessment: Date of Thrive Assessment Date Thrive assessed 11/07/23 01/22/24 15:14 Const General: cooperative and healthy appearing Nutritional Appearance: well nourished Orientation/consciousness: patient oriented x3 Limitations: no limitations HENMT Head: Yes normal to inspection Eyes General: appearance normal, both eyes and all related structures Neck Neck: Yes normal visual inspection Chest Chest palpation & inspection: normal palpation of entire chest wall Resp Effort & Inspection: normal respiratory effort Neuro General: patient oriented x3 Assessment and Plan Assessment & Plan (1) Essential hypertension: Code(s): I10 - Essential (primary) hypertension Plan: The blood work was printed and discussed with the patient. I explained that I no concerns about his cholesterol levels. He does not require any medications. Blood pressure is in range. Continue medications at the same dosage. (2) Diabetes mellitus: Code(s): E11.9 - Type 2 diabetes mellitus without complications Plan: Continue diabetes medications at the same dosage. Coding Level of Care Code Est Pt Level 4 (17782) Complex EM visit Add On G2211 Diagnoses Essential hypertension I10 Diabetes mellitus E11.9
[2024-01-22 15:01] VITALS: BP 112/68; PULSE 73; O2SAT 97; BMI 29.1
== END 2024-01-22 16:24 | disposition home or self-care (01) ==
PROVIDERS: PCP Internal Medicine; Visit Provider Internal Medicine
DX: I10 Essential (primary) hypertension (principal); E11.9 Type 2 diabetes mellitus without complications
CPT/HCPCS: 99214; G2211

== ENCOUNTER 2024-02-20 09:10 | Emergency (ER) | payer OTHER, SELFPAY ==
--- NOTE | 2024-02-20 | ECG_ITS ---
Test Reason : VOMITTING Blood Pressure : / mmHG Vent. Rate : 076 BPM Atrial Rate : 076 BPM P-R Int : 170 ms QRS Dur : 096 ms QT Int : 410 ms P-R-T Axes : 040 -52 043 degrees QTc Int : 461 ms Normal sinus rhythm Left anterior fascicular block Abnormal ECG When compared with ECG of 06-FEB-2019 11:52, Borderline criteria for Lateral infarct are no longer Present Nonspecific T wave abnormality, improved in Inferior leads Referred By: Generic ED Physician Electronically Signed By:Abisai Holley
[2024-02-20 09:17] VITALS: BP 137/81; PULSE 72; RESP 20; TEMP 37.2; O2SAT 98; BMI 28.3
[2024-02-20] MEDS: ondansetron HCL 4 MG/2 ML VIAL IVPUSH (09:43)
[2024-02-20] MEDS: 0.9 % Sodium Chloride 1,000 ML 999 ML IVCONT (09:43)
[2024-02-20 09:45] LABS: MANUAL DIFF FLAG NO
[2024-02-20 09:46] LABS: Basophils Absolute Auto 0.1 X10*3/uL (0.0-0.2); Basophils Percent Auto 0.8 % (0-2); Eosinophils Percent Auto 0.1 % (0-4); Hematocrit 56.6 % (42.0-52.0); Imm Gran Abs Auto 0.08 X10*3/uL (0.00-0.03); Imm Gran Pct Auto 1.1 % (0.0-0.4); Lymphocytes Absolute Auto 1.1 X10*3/uL (1.2-4.9); Lymphocytes Percent Auto 14.4 % (20-40); Mean Corpuscular HGB Conc 35.3 g/dl (31.0-36.0); Mean Corpuscular Hemoglobin 31.1 pg (27.0-33.0); Mean Corpuscular Volume 87.9 fL (80.0-98.0); Mean Platelet Volume 9.6 fL (9.4-12.4); Monocytes Absolute Auto 0.4 X10*3/uL (0.1-1.2); Monocytes Percent Auto 5.3 % (2-11); Neutrophils Absolute Auto 5.7 x10*3/uL (2.0-8.3); Neutrophils Percent Auto 78.3 % (45-73); Platelet Count 252 X10*3/uL (160-400); Red Blood Count 6.44 X10*6/uL (4.60-5.80); Red Cell Distribution Width 12.9 % (11.0-16.0); White Blood Count 7.3 X10*3/uL (4.8-10.8)
--- NOTE | 2024-02-20 10:00 | ED_ITS ---
HPI - Nausea/Vomiting/Diarrhea General Chief complaint: Nausea/Vomiting/Diarrhea Stated complaint: Vomiting Time Seen by Provider: 02/20/24 09:13 Source: patient and family Mode of arrival: ambulatory Limitations: no limitations History of Present Illness ED Provider: Elvira Taylor PA-C HPI Narrative: 53 yo male with history of diverticulosis and diabetes who presents to the ER for evaluation of recurrent vomiting and 2 episodes of diarrhea after drinking a.m. juice with his this morning. Patient's reportedly had made juice from for autoimmune purposes. They both drink the juice and then 15 minutes later started vomiting. Patient has vomited about 10 times since 06:00. He has had 2 episodes of nonbloody diarrhea. He denies any abdominal pain. No fever or chills. No urinary symptoms. His is here with vomiting as well. MD elicited complaint: nausea, vomiting and diarrhea Onset (ago): hour(s) Description of vomiting: food contents Description of diarrhea: watery Associated nausea: Yes Associated abdominal pain: No Location of pain: none Exacerbating factors: none Relieving factors: none Context: possible food poisoning Associated symptoms: myalgias, loss of appetite, malaise and nausea/vomiting Related Data Previous Rx's ?Medication ?Instructions ?Recorded lancets 28 gauge (FreeStyle #100 ea 06/04/23 Lancets) telmisartan 40 1 tab PO DAILY #90 tabs 06/27/23 mg-hydrochlorothiazide 12.5 mg tablet blood sugar diagnostic (FreeStyle #100 ea 11/29/23 Lite Strips) dapagliflozin propaned 10 1 tab PO DAILY #90 ea 12/25/23 mg-metformin ER 1,000 mg tablet,ext rel 24hr (Xigduo XR) ondansetron 4 mg disintegrating 4 mg PO Q8H PRN nausea and 02/20/24 tablet vomiting #7 tabs Allergies Allergy/AdvReac Type Severity Reaction Status Date / Time No Known Allergies Allergy Verified 02/20/24 09:19 [No Known Allergies*] Review of Systems 2 Review of Systems: Yes all other systems are reviewed and are negative Gastrointestinal: Gastrointestinal: Reports nausea PMFSH Past Medical History Medical History Essential hypertension Diabetes mellitus Surgical History Hx of colonoscopy History of dental surgery History of wisdom tooth extraction Family History Family History Mother No problems noted. Father No problems noted. Social History Social History Household Members Other:: Housing: Apartment Alcohol intake: never Patient Tobacco Use Status: Former Tobacco user e-Cigarette/Vaping Use: Never Used Second Hand Smoke Exposure: Yes Advance Directives: No Advance Directives Information Provided: Yes Do you have a plan to hurt others: No Plan service: No Current occupational status: unemployed Cognitive needs: No Hearing needs: No Vision needs: No Physical Exam 2 Vital Signs: Vital Signs: Last Vital Signs Temp 98.6 F 02/20/24 12:32 Pulse 85 02/20/24 12:32 Resp 18 02/20/24 12:32 BP 129/65 02/20/24 12:32 Pulse Ox 98 02/20/24 12:32 O2 Del Method Room Air 02/20/24 12:32 BMI result Body Mass Index 28.3 Appearance: Alert. Oriented X3. Lying on his side, moaning, mild distress Head: normocephalic, atraumatic. Eyes: Pupils equal, round and reactive to light. ENT: Pharynx normal. No tonsillar swelling or exudate. Neck: Normal inspection. Neck supple. CVS: Normal heart rate and rhythm. Pulses normal. Respiratory: No respiratory distress. Breath sounds normal. Abdomen: Soft and nontender. +BS x4 Skin: Skin warm and dry. Normal skin color. Normal skin turgor. No rashes. Extremities: No lower extremity edema. No joint swelling. Neuro/psych: Oriented X 3. Grossly normal, nonfocal Medications Administered Discontinued Medications Generic Name Dose Route Start Last Admin Trade Name Freq PRN Reason Stop Dose Admin Sodium Chloride 1,000 mls @ 999 mls/hr 02/20/24 09:30 02/20/24 10:45 Ns IVCONT 02/20/24 10:30 Infused .Q1H1M [facility] Infusion Lactated Ringer's 1,000 mls @ 999 mls/hr 02/20/24 10:30 02/20/24 11:53 Lr IV 02/20/24 11:30 Infused .Q1H1M [facility] Infusion Ondansetron HCl 4 mg 02/20/24 09:25 02/20/24 09:43 Ondansetron Hcl 4 Mg/2 Ml Vial IVPUSH 02/20/24 09:26 4 mg ONCE ONE Administration Medical Decision Making Medical Decision Making [facility] Narrative: 53-year-old diabetic male with a history of diverticulosis presents to the ER for evaluation of recurrent vomiting and 2 episodes of nonbloody stool that occurred this morning after drinking a special year a.m. juice. His is here with similar complaints. On arrival to the ER patient is actively vomiting orange juice. He appears uncomfortable. His abdomen was nontender, low suspicion for acute abdominal process. IV was established and IV fluids were administered. Labs showed no leukocytosis but he does have elevated hemoglobin and hematocrit. Labs are also showing evidence of dehydration with a mild LENNY, hypercalcemia, slightly elevated BUN and anion gap. His glucose is 213, doubt euglycemic DKA. He was given 2 L IV fluid boluses. His EKG showed some doming of his ST segments in the precordial leads that are slightly different from prior EKGs. He has no chest pain, shortness of breath, epigastric pain. His troponin was negative. Doubt cardiac process. Patient was feeling significantly improved after treatment. He was also given Zofran. He was tolerating p.o. after this. Upon re-evaluation the patient felt significantly better. He is hemodynamically stable. Tolerating p.o.. Stable for discharge home with continuation of oral hydration, p.r.n. Zofran. Differential Diagnosis Differential Diagnoses: The differential diagnosis associated with the presentation includes Food poisoning, gastroenteritis, dehydration, euglycemic DKA Admission/Observation Consideration of admission/observation: Escalation of care including admission/observation considered Lab Data [facility] Lab Attestation statement: I reviewed the patient's lab results. Erythrocytosis, LENNY, hyperkalemia, all likely related to acute dehydration and hemoconcentration. Patient may have underlying polycythemia as his prior H&H were also elevated 02/20/24 09:39 02/20/24 09:40 Labs: Lab Results 02/20/24 02/20/24 02/20/24 Range/Units 09:39 09:40 12:12 WBC 7.3 (4.8-10.8) X10*3/uL RBC 6.44 H (4.60-5.80) X10*6/uL Hgb 20.0 H (14.0-18.0) g/dl Hct 56.6 H (42.0-52.0) % MCV 87.9 (80.0-98.0) fL MCH 31.1 (27.0-33.0) pg MCHC 35.3 (31.0-36.0) g/dl RDW 12.9 (11.0-16.0) % Plt Count 252 (160-400) X10*3/uL MPV 9.6 (9.4-12.4) fL Immature Gran % (Auto) 1.1 H (0.0-0.4) % Neut % (Auto) 78.3 H (45-73) % Lymph % (Auto) 14.4 L (20-40) % [place] % (Auto) 5.3 (2-11) % Eos % (Auto) 0.1 (0-4) % Baso % (Auto) 0.8 (0-2) % Lymph # (Auto) 1.1 L (1.2-4.9) X10*3/uL [place] # (Auto) 0.4 (0.1-1.2) X10*3/uL Eos # (Auto) 0.0 (0.0-0.4) X10*3/uL Baso # (Auto) 0.1 (0.0-0.2) X10*3/uL Abs Immat Gran (auto) 0.08 H (0.00-0.03) X10*3/uL Absolute Neuts (auto) 5.7 (2.0-8.3) x10*3/uL Absolute Nucleated RBC 0.000 (0.0-0.012) X10*3/uL Nucleated RBC % (auto) 0.0 (0.0-0.2) /100WBC Sodium 138 (135-145) mmol/L Potassium 3.6 (3.3-5.1) mmol/L Chloride 99 (96-108) mmol/L Carbon Dioxide 21 L (22-29) mmol/L Anion Gap 22 H (12-20) BUN 21 H (9-16) mg/dL Creatinine 1.49 H (0.5-1.4) mg/dL Estim Creat Clear Calc 58.1 Estimated GFR 50 Random Glucose 213 H (60-115) mg/dL Calcium 11.3 H D (8.4-10.2) mg/dL Total Bilirubin 1.1 H (0.0-1.0) mg/dL AST 25 (5-37) U/L ALT 29 (0-40) U/L Alkaline Phosphatase 128 H (39-117) U/L Troponin I High Sens < 2.7 (<3.5-35.0) ng/L Total Protein 9.4 H (6.5-8.0) g/dL Albumin 5.4 H (3.5-5.0) g/dL Lipase 41 (8-78) U/L Urine Color Yellow Urine Appearance Clear Urine pH 5.5 (5.0-9.0) Ur Specific [place] >= 1.030 H (1.005-1.025) Urine Protein 100 (2+) H (Neg-Trace) mg/dL Urine Glucose (UA) >=1000 H (Negative) mg/dL Urine Ketones 15 (Negative) mg/dL Urine Blood Negative (Negative) Urine Nitrite Negative (Negative) Ur Leukocyte Esterase Negative (Negative) Urine RBC 0-2 (0-2) /HPF Urine WBC 0-5 (0-5) /HPF Ur Squamous Epith Cells 0-2 (0-2) /HPF Urine Bacteria None Seen (None Seen) Hyaline Casts 0-2 (0-2) /LPF Independent Interpretation I performed an independent interpretation of an: EKG Interpretation: EKG with sinus rhythm, ventricular rate 76 beats per minute, there is some ST doming in V2 to V4 no ST segment elevations or depressions. Independent Historian Clinical information obtained from an independent historian. History obtained from or confirmed by: Spouse External Record Review External record reviewed: Outpatient record and Prior outpatient labs Tests considered The following testing was considered but not selected: CT scan of the abdomen and pelvis were considered however abdomen was nontender and low suspicion for any acute abdominal process Prescription Management I considered prescription management with: Other (Antiemetic) Chronic Conditions Patient?s care impacted by: Diabetes Critical Care Time Critical Care Time Critical Care Time: Yes Total Critical Care Time: 32 Attestation: I have personally provided critical care time exclusive of time spent on separately billable procedures. Time includes review of lab data, bedside reassessment of vital signs and status after IV fluid boluses x2 and monitoring for potential decompensation. Intervention performed as documented. Discharge Plan Discharge Clinical Impression: Food poisoning Patient Disposition: Home, Self-Care Instructions: Food Poisoning (ED) Additional Instructions: Your lab workup today showed evidence of dehydration. Your given 2 L of IV fluids. Rest and drink plenty of fluids at home today. Stick to a bland diet where not feeling well. Take the prescribed medication as needed for nausea. If you develop new or worsening symptoms call 911 or come back to the ER for further evaluation. Prescriptions: New ondansetron 4 mg tablet,disintegrating 4 mg PO Q8H PRN (Reason: nausea and vomiting) Qty: 7 0RF No Action (DME) lancets [FreeStyle Lancets] 28 gauge misc See Rx Instructions .ROUTE .MEDSUPPLY Qty: 100 1RF Rx Instructions: to check blood sugars once a day telmisartan-hydrochlorothiazid 40-12.5 mg tablet 1 tab PO DAILY Qty: 90 1RF (DME) FreeStyle Lite Strips Strip See Rx Instructions .ROUTE .MEDSUPPLY Qty: 100 1RF Rx Instructions: once a day Xigduo XR 10-1,000 mg tablet, IR - ER, biphasic 24hr 1 tab PO DAILY Qty: 90 0RF Interventions: ED Discharge Assessment Last Done: 02/20/24 12:32 Discharge Date/Time: 02/20/24 12:33 Print Language: Korean
[2024-02-20 10:02] LABS: Alanine Aminotransferase 29 U/L (0-40); Albumin Level 5.4 g/dL (3.5-5.0); Alkaline Phosphatase 128 U/L (39-117); Anion Gap 22 (12-20); Aspartate Amino Transferase 25 U/L (5-37); Bilirubin Total 1.1 mg/dL (0.0-1.0); Blood Urea Nitrogen 21 mg/dL (9-16); Calcium 11.3 mg/dL (8.4-10.2); Carbon Dioxide 21 mmol/L (22-29); Chloride 99 mmol/L (96-108); Creatinine Clr Calc Pharmacy 58.1; Estimated Glomerular Filt Rate 50; Glucose Random 213 mg/dL (60-115); Lipase 41 U/L (8-78); Potassium 3.6 mmol/L (3.3-5.1); Sodium 138 mmol/L (135-145); Total Protein 9.4 g/dL (6.5-8.0)
[2024-02-20 10:13] VITALS: BP 112/69; PULSE 80; RESP 20; TEMP 36.5; O2SAT 98
[2024-02-20 10:23] LABS: Troponin-I High Sensitivity < 2.7 ng/L (<3.5-35.0)
[2024-02-20] MEDS: Lactated Ringers 1,000 ML 999 ML IV (10:45)
[2024-02-20 12:00] VITALS: BP 129/65; PULSE 107; RESP 15; TEMP 37; O2SAT 94
--- NOTE | 2024-02-20 12:08 | MHC.EDTECH ---
pt kevin signs taken, pt instructed we need urine sample, went to the bathroom, asked for pillow- pillow given, call roper within reach.
[2024-02-20 12:20] LABS: Appearance Urine Clear; Color Urine Yellow; Glucose Urine UA >=1000 mg/dL (Negative); Leukocyte Esterase Urine Negative (Negative); Nitrite Urine Negative (Negative); PH 5.5 (5.0-9.0); Specific Gravity - Urine >= 1.030 (1.005-1.025); UMIC TRIGGER UACC YES; Urine Blood Negative (Negative); Urine Ketones 15 mg/dL (Negative); Urine Protein 100 (2+) mg/dL (Neg-Trace)
[2024-02-20 12:25] LABS: Bacteria Urine None Seen (None Seen); Hyaline Casts Urine 0-2 /LPF (0-2); RBC Urine 0-2 /HPF (0-2); Squamous Epithelial Cell Urine 0-2 /HPF (0-2); WBC Urine 0-5 /HPF (0-5)
[2024-02-20 12:32] VITALS: BP 129/65; PULSE 85; RESP 18; TEMP 37; O2SAT 98
== END 2024-02-20 12:33 | disposition home or self-care (01) ==
PROVIDERS: Physician Assistant; Emergency Provider Emergency Medicine
DX: A05.9 Bacterial foodborne intoxication, unspecified (principal); R11.2 Nausea with vomiting, unspecified; I10 Essential (primary) hypertension; E11.9 Type 2 diabetes mellitus without complications; Z79.899 Other long term (current) drug therapy
CPT/HCPCS: 36415; 80053; 81001; 83690; 84484; 85025; 93005; 96361; 96374; 99284; 99285; J2405; J7120

== ENCOUNTER → 2024-02-20 09:25 | Outpatient (BNV) | payer OTHER, SELFPAY | PROVIDERS: Emergency Provider Emergency Medicine; Visit Provider Internal Medicine Cardiovascular Disease | DX: R94.31 Abnormal electrocardiogram [ECG] [EKG] (principal) | CPT/HCPCS: 93010 ==

== ENCOUNTER 2025-06-30 10:20 | Outpatient (REF) | payer OTHER, SELFPAY ==
[2025-06-30 11:52] LABS: Hematocrit 53.8 % (42.0-52.0); Hemoglobin 19.1 g/dl (14.0-18.0); Mean Corpuscular HGB Conc 35.5 g/dl (31.0-36.0); Mean Corpuscular Hemoglobin 30.7 pg (27.0-33.0); Mean Corpuscular Volume 86.4 fL (80.0-98.0); NRBC Abs Auto 0.000 X10*3/uL (0.0-0.012); NRBC Pct Auto 0.0 /100WBC (0.0-0.2); Platelet Count 221 X10*3/uL (160-400); Red Blood Count 6.23 X10*6/uL (4.60-5.80); White Blood Count 8.2 X10*3/uL (4.8-10.8)
[2025-06-30 12:10] LABS: Appearance Urine Clear; Glucose Urine UA >=1000 mg/dL (Negative); PH 5.0 (5.0-9.0); Specific Gravity - Urine >= 1.030 (1.005-1.025); UMIC TRIGGER UA YES
[2025-06-30 13:07] LABS: Alanine Aminotransferase 59 U/L (0-40); Albumin Level 5.0 g/dL (3.5-5.0); Alkaline Phosphatase 115 U/L (39-117); Anion Gap 12 (12-20); Aspartate Amino Transferase 33 U/L (5-37); Blood Urea Nitrogen 18 mg/dL (9-16); Calcium 9.9 mg/dL (8.4-10.2); Carbon Dioxide 27 mmol/L (22-29); Chloride 102 mmol/L (96-108); Cholesterol 303 mg/dL (<200); Estimated Glomerular Filt Rate > 60; HDL Cholesterol 31 mg/dL (>40); Potassium 3.9 mmol/L (3.3-5.1); Sodium 137 mmol/L (135-145); Total Protein 8.4 g/dL (6.5-8.0); Triglycerides 1640 mg/dL (<150)
[2025-06-30 13:20] LABS: Thyroid Stimulating Hormone 1.86 uIU/mL (0.32-4.0)
[2025-06-30 13:49] LABS: Microalbum/Creatinine Ratio Ur 192.8 ug/mg cr (<30)
== END 2025-06-30 10:21 | disposition home or self-care (01) ==
LOC: HO.LAB 10:20
PROVIDERS: PCP Internal Medicine; Visit Provider Internal Medicine
DX: E11.9 Type 2 diabetes mellitus without complications (principal)
CPT/HCPCS: 36415; 80048; 80061; 80076; 81001; 81003; 82043; 82570; 82948; 83036; 84153; 84443; 85027; 99212

== ENCOUNTER 2025-06-30 10:20 | Outpatient (AMB) | payer OTHER, SELFPAY ==
--- NOTE | 2025-06-30 10:33 | A.OFFPC_ITS ---
Vital Signs 06/30/25 10:34 Height 5 ft 6 in Weight 182 lb 6 oz BMI 29.4 BP 112/74 Blood Pressure Location Lt brachial Position Sitting Pulse 81 Pulse Source Pulse Oximeter Temp 97.3 F Temp Source Temporal Artery Scan Pulse Oximetry (%) 95 Oxygen Delivery Method Room Air Intake Visit Reasons: f/u appointment Intake Note: Patient is here to follow up on DM, HTN. Roofing Machine Tender Required: No Visiting Professor: Not Required per policy Accompanied by: Self / Same As Patient Allergies No Known Allergies (No Known Allergies*) Allergy (Verified 06/30/25 11:36) Medication List - Last Reconciled 06/30/25 by Jorge A Pizarro MD blood sugar diagnostic (FreeStyle Lite Strips) once a day dapaglifloz propaned-metformin 10-1,000 mg ER (Xigduo XR) 1 tab PO DAILY lancets (FreeStyle Lancets) to check blood sugars once a day ondansetron 4 mg PO Q8H PRN telmisartan-hydrochlorothiazid 40-12.5 mg 1 tab PO DAILY Tobacco use date assessed: 06/30/25 Dental Screening Dental Screen Date: 06/30/25 Did you have a dental visit in the last 12 months?: No Did you have a dental problem in the last 6 months where you did not have access to dental care?: No Was dental information given to patient?: No [facility] Medical History Essential hypertension Diabetes mellitus Surgical History Hx of colonoscopy (~05/06/23) History of dental surgery History of wisdom tooth extraction Family History Mother No problems noted. Father No problems noted. Social History Household Members Other:: Housing: Apartment Alcohol intake: never Patient Tobacco Use Status: Former Tobacco user e-Cigarette/Vaping Use: Never Used Second Hand Smoke Exposure: Yes service: No Current occupational status: unemployed Cognitive needs: No Hearing needs: No Vision needs: No Questionnaire PHQ-9 Over the last 2 weeks, how often have you been bothered by any of the following problems? 1. Little interest or pleasure in doing things: not at all 2. Feeling down, depressed, or hopeless: not at all 3. Trouble falling or staying asleep, or sleeping too much: not at all 4. Feeling tired or having little energy: not at all 5. Poor appetite or overeating: not at all 6. Feeling bad about yourself - or that you are a failure or have let yourself or your family down: not at all 7. Trouble concentrating on things, such as reading the newspaper or watching television: not at all 8. Moving or speaking so slowly that other people could have noticed. Or the opposite - being so fidgety or restless that you have been moving around a lot more than usual: not at all 9. Thoughts that you would be better off or of hurting yourself in some way: not at all Total score: 0 Depression Screening Interpretation: Negative Depression Screening Done: Yes Source: Developed by Drs. Say Hussein, Ludivina Huffman, Vincenzo Arrington and colleagues, with an educational hilton from [employer]. Thrive Questionnaire Date Thrive assessed: 06/30/25 I am a: Patient What is your living situation today?: I have a steady place to live Within the past 12 months, did the food you bought not last and you didn't have the money to get more?: Never true Within the past 12 months, did you worry whether your food would run out before you got money to buy more?: Never true Do you have trouble paying for medicines?: No Do you have trouble getting transportation to medical appointments?: No Do you have trouble paying your heating and electricity bill?: No Do you have trouble taking care of your child, family member or friend?: No Do you have trouble with day-to-day activities such as bathing, preparing meals, shopping, managing finances, etc.?: No Are you currently unemployed and looking for a job?: Yes Are you interested in more education?: No Please select the resources that you would like help with: None Currently or been in a relationship where the following occur: Controlled Emotionally THRIVE Score: 1 AUDIT C Alcohol Use Questionnaire (AUDIT-C) 1. How often do you have a drink containing alcohol?: Never Total Score: 0 LUMA-7 AMB Questionnaire LUMA-7 Date LUMA - 7 assessed: 06/30/25 Feeling nervous, anxious, or on edge: 0 = Not at all Not being able to stop or control worryin = Not at all Worrying too much about different things: 0 = Not at all Trouble relaxin = Not at all Being so restless that it is hard to sit still: 0 = Not at all Becoming easily annoyed or irritable: 0 = Not at all Feeling afraid as if something awful might happen: 0 = Not at all Total LUMA-7 score (0-4 normal; 5-9 mild; 10-14 moderate; 15-21 severe): 0 Source: Developed by Drs. Say Hussein, Ludivina Huffman, Vincenzo Arrington and colleagues, with an educational hilton from [employer]. Physical exam (Primary Care) Vital Signs: Last Vital Signs Temp 97.3 F 06/30/25 10:34 Pulse 81 06/30/25 10:34 BP 112/74 06/30/25 10:34 Pulse Ox 95 06/30/25 10:34 Oxygen Delivery Method Room Air 06/30/25 10:34 BMI result Body Mass Index 29.4 Tobacco/Smoking Status: Tobacco use Status Tobacco use date assessed 06/30/25 06/30/25 10:35 Patient Tobacco Use Status Former Tobacco user 06/30/25 10:35 e-Cigarette/Vaping Use Never Used 06/30/25 10:35 PHQ-9: PHQ-9 Score PHQ-9: Total score 0 06/30/25 10:35 Depression Screening Interpretation: Negative Thrive Assessment: Date of Thrive Assessment Date Thrive assessed 06/30/25 06/30/25 10:35 Currently or been in a relationship where the following occur: Controlled Emotionally Results AMB Random Glucose (hemocue) AMB Random Glucose (hemocue) 103 mg/dL Last Edit by KATHARINE Dela Cruz on 06/30/25 11:10 Results Reviewed Results Reviewed: Laboratory Last Values Random Glu (Clinic) 103 mg/dL 06/30/25 10:35 Coding Level of Care Code Est Pt Level 4 (36085) Add On Problem Visit Only Diagnoses Diabetes mellitus E11.9 Assessment & Plan Assessment & Plan (1) Diabetes mellitus: Code(s): E11.9 - Type 2 diabetes mellitus without complications Category: Medical Plan: History of Present Illness - The patient is a 55 year old male presenting for a follow-up visit. - Regarding his diabetes, he takes Xigduo once daily at night, which he obtains from [facility] [employer]. - He checks his blood sugar about once a week, with readings around 120 and the highest being 135. - He takes blood pressure medication daily. - He reports difficulty with his vision, particularly up close, and has not had a recent eye exam. - He has a history of dry skin on his leg, consistent with eczema, which he manages with Vaseline. - He has had a prior colonoscopy. - He has not received a flu shot. - He quit smoking a long time ago and does not drink much alcohol. - He reports no current exercise routine. - His diet consists of more protein than carbohydrates. Social History - Marital Status: He lives with his . - Children: He has a 29-year-old child. 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 - Residence: He lives in [place]. - Diet: He tries to eat more protein than carbohydrates and uses a diet sweetener in his coffee. - Exercise: He does not currently exercise. - Substance Use: He denies significant alcohol use and quit smoking a long time ago. - Functional Status: He can perform all his activities. Review of Systems - General: Denies any acute health concerns. - Eyes: Reports difficulty with near vision. - Abdomen: Reports some pain on his abdomen in two separate locations. - Integumentary: Reports dry skin on his leg. - Genitourinary: Denies any sexual problems. Physical Exam General: Cooperative and healthy appearing Nutritional Appearance: Well nourished Orientation/consciousness: Patient oriented x3 Limitations: No limitations Head: Normal to inspection General: Appearance normal, both eyes and all related structures Neck: Normal visual inspection Chest: Normal palpation of entire chest wall Respiratory: Normal respiratory effort Neurology: Patient oriented x3 Results - Labs: A [id number] HgbA1c test was attempted three times but failed due to the result being too high to read. - Tests and Diagnostics: A random fingerstick blood glucose test was 103. Plan - Due to the discrepancy between the unreadable hzxkz-on-vrmo A1c and the normal random blood sugar of 103, comprehensive blood work will be obtained at the lab today. - Lab orders include a cholesterol panel and a urine test. - The current medication regimen, including Xigduo obtained from [facility], will be continued pending the results of the lab work. - If the lab results are normal, the patient will continue his current management; if they are abnormal, he will be contacted by phone to discuss further changes. - The patient was advised to see an patient care technician for an eye exam due to his vision complaints. - For dry skin on the leg, the patient declined a prescription cream and will continue using Vaseline. - The patient declined an influenza vaccination. - The patient will schedule a follow-up appointment in six months. Discussion Notes I discussed the follow-up visit with the patient. I noted that his last blood work was from over a year ago and explained the need for new labs today. I explained the conflicting results from the in-office testing, where the ooxrt-gh-gvau A1c monitor showed a result that was too high to read, while a subsequent random fingerstick glucose test was normal at 103. Due to this discrepancy, I emphasized the importance of going to the laboratory across the street immediately to get definitive blood work done, which will include cholesterol and a urine sample. I advised the patient that if the lab results come back normal, his current management plan is acceptable, and he can continue his medications as is. However, if the results are abnormal, I will call him to discuss adjustments. We discussed his dry skin, which I identified as eczema, and I offered a prescription cream, but he preferred to continue using Vaseline, which I agreed was sufficient. I recommended he see an eye doctor for his vision changes. I instructed him to follow up in six months. Patient Instructions - Go to the lab across the street today to have your blood and urine tests done. - Continue taking your current medications, including Xigduo and your blood pressure pill, as you have been. - We will call you if your lab results are abnormal and require a change in your treatment plan. - Schedule an appointment with an eye doctor (patient care technician) to have your vision checked. - Continue using Vaseline for the dry skin on your leg. - Schedule a follow-up appointment with our office in six months. Orders: Orders Hemoglobin A1c Today E11.9 - Type 2 diabetes mellitus without complications Thyroid Stimulating Hormone Today E11.9 - Type 2 diabetes mellitus without complications Microalbumin, Random (w Creat) Today E11.9 - Type 2 diabetes mellitus without complications Prostate Specific Antigen Scr Today E11.9 - Type 2 diabetes mellitus without complications Basic Metabolic Panel Today E11.9 - Type 2 diabetes mellitus without complications Complete Blood Count no Diff Today E11.9 - Type 2 diabetes mellitus without complications Lipid Panel Today E11.9 - Type 2 diabetes mellitus without complications Liver Panel Today E11.9 - Type 2 diabetes mellitus without complications UA and rflx microscopic Today E11.9 - Type 2 diabetes mellitus without complications AMB Random Glucose (hemocue) Today E11.9 - Type 2 diabetes mellitus without complications
[2025-06-30 10:34] VITALS: BP 112/74; PULSE 81; TEMP 36.3; O2SAT 95; BMI 29.4
== END 2025-06-30 11:18 | disposition home or self-care (01) ==
LOC: HO.HMCH 10:21
PROVIDERS: Visit Provider Internal Medicine
DX: E11.9 Type 2 diabetes mellitus without complications (principal)